=== PATIENT | female | born 1955 | race Caucasian/White ===

== ENCOUNTER 2020-03-25 13:34 | Outpatient (CLI) | payer BC | END 2020-03-25 13:35 | disposition home or self-care (01) | LOC: COV 13:34 | PROVIDERS: ATTEND Family Medicine | DX: Z20.828 Contact with and (suspected) exposure to other viral communicable diseases (principal) ==

== ENCOUNTER 2022-12-09 08:00 | Outpatient (CLI) | payer BC | END 2022-12-09 23:59 | disposition home or self-care (01) | LOC: LAB.N 08:00 | PROVIDERS: ATTEND Physician Assistant Medical | DX: N30.00 Acute cystitis without hematuria (principal) | CPT/HCPCS: 87086 ==